=== PATIENT | female | born 1965 | race Two or more races ===

== ENCOUNTER → 2021-03-22 13:48 | Outpatient (CLI) | payer SELFPAY ==
--- NOTE | 2021-03-21 | FLU_PTH ---
PATIENT: MIKALA HOPKINS LOC: [facility] U#:[id number] AGE/SX: 60/F ROOM: RE03/22/[address]: Dr. Mahtieu Ornelas MD : 1965 BED: DIS: SPEC #: [id number] RECD: 03/21/21 17:43 STATUS: MIKE JOHN PAUL #: [id number] SHREE: 03/21/21 00:[address]: Mathieu Ornelas DEPT: CYTOLOGY RECD BY: [place] Rain Tissues: Thyroid gland, NOS Procedures: Special Stain Group II Surgery Specimen Level IV Cytospin Fluid HEADER OPERATION: Fine needle aspiration left thyroid lobe nodule PRE-OP DIAGNOSIS: Left thyroid lobe nodule TISSUE SUBMITTED: Left thyroid lobe nodule fluid for cytology DIAGNOSIS CYTOLOGY Left thyroid lobe nodule fluid for cytology (cytospin and cell block): Consistent with follicular nodule with extensive cystic changes. Adequate for evaluation. See comment. LORENE:vicky 03/23/2021 COMMENT The specimen predominantly consists of macrophages. Correlation with clinical, radiologic findings and appropriate follow up are necessary. CYTOLOGY STUDY Slides are reviewed. CYTOLOGY GROSS Received is 35 ml of red cloudy fluid labeled with the patient's name and and designated per the requisition as left thyroid. Submitted for cytology preparation including cell block. / vicky 03/22/2021 TC:5 CPT: 61235, 17490
== END ==
PROVIDERS: Visit Provider Otolaryngology
DX: E04.1 Nontoxic single thyroid nodule (principal)
CPT/HCPCS: 88108; 88305; 88313